=== PATIENT | female | born 2000 | race Caucasian/White ===

== ENCOUNTER 2018-11-08 16:06 | Emergency (ER) | payer SELFPAY ==
[~2018-11-08] VITALS: Ht 149.9 cm; Wt 56.7 kg
[2018-11-08 16:25] VITALS: BP 132/77
--- NOTE | 2018-11-08 16:25 | NUR ---
PT TO ED BED 09. HERE FOR NEEDLE STICK INJURY TO R INDEX FINGER. 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 DENIES ANY PAIN AT THIS TIME AWAITING MD MANZANO.
--- NOTE | 2018-11-08 16:27 | NUR ---
DR MEJIA AT BEDSIDE FOR EVAL.
--- NOTE | 2018-11-08 16:42 | NUR ---
SOLAR SYSTEM DESIGNER AT BEDSIDE FOR BLOOD DRAW.
--- NOTE | 2018-11-08 17:49 | NUR ---
CALLED [facility] FOR JOCE LOBO
--- NOTE | 2018-11-08 19:26 | NUR ---
Note mary in EDM - 11/08/18 at 1927 by ALOK PT TO ED BED . HERE FOR NEEDLE STICK INJURY TO R INDEX FINGER. 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 DENIES ANY PAIN AT THIS TIME AWAITING MD MANZANO.
--- NOTE | 2018-11-08 19:27 | NUR ---
REPORT TO BRUNA THOMAS FOR [facility].
--- NOTE | 2018-11-08 19:36 | NUR ---
PT NOT TO BE SEEN IN THE ER, PT ELOPED.
== END 2018-11-08 19:37 | disposition left against medical advice (07) ==
LOC: ER 16:10
DX: S61.230A Puncture wound without foreign body of right index finger without damage to nail, initial encounter (principal); L08.9 Local infection of the skin and subcutaneous tissue, unspecified; Z60.2 Problems related to living alone; W46.0XXA Contact with hypodermic needle, initial encounter; Y93.89 Activity, other specified; Y92.89 Other specified places as the place of occurrence of the external cause; Y99.8 Other external cause status
CPT/HCPCS: 36415; 86706; 86803; 87340; 87806